=== PATIENT | female | born 1985 | race Two or more races ===

== ENCOUNTER 2020-05-12 11:31 | Inpatient (IN) | payer OTHER ==
[~2020-05-12] VITALS: Ht 165.1 cm; Wt 77.6 kg
[2020-06-04] MEDS ORDERED: PRENATAL TABLE1 EAC1 PO (16:16)
== END 2020-06-08 13:44 | DRG 788 ==
LOC: LDR 06-04 15:54 → SURG-SUITE 06-05 16:28 → LDR 06-09 13:15
PROVIDERS: ADMIT Obstetrics & Gynecology; ATTEND Obstetrics & Gynecology
PROC: 4A1HXCZ Monitoring of Products of Conception, Cardiac Rate, External Approach (ICD-10-PCS; 2020-06-04)
PROC: 3E033VJ Introduction of Other Hormone into Peripheral Vein, Percutaneous Approach (ICD-10-PCS; 2020-06-05)
PROC: 10D00Z1 Extraction of Products of Conception, Low, Open Approach (ICD-10-PCS; principal; 2020-06-05 14:00)
DX: O61.0 Failed medical induction of labor (principal); O13.3 Gestational [pregnancy-induced] hypertension without significant proteinuria, third trimester; O82 Encounter for cesarean delivery without indication; Z3A.39 39 weeks gestation of pregnancy; Z37.0 Single live birth; Z20.828 Contact with and (suspected) exposure to other viral communicable diseases

== ENCOUNTER 2020-06-02 09:30 | Outpatient (CLI) | payer OTHER | END 2020-06-02 10:41 | disposition home or self-care (01) | LOC: NST 09:30 | PROVIDERS: ATTEND Obstetrics & Gynecology Maternal & Fetal Medicine | DX: Z34.83 Encounter for supervision of other normal pregnancy, third trimester (principal) ==

== ENCOUNTER 2020-06-03 10:51 | Outpatient (CLI) | payer OTHER ==
[2020-06-04] MEDS ORDERED: PRENATAL TABLE1 EAC1 PO (16:16)
== END 2020-06-03 11:49 | disposition home or self-care (01) ==
LOC: NST 10:51
PROVIDERS: ATTEND Obstetrics & Gynecology Maternal & Fetal Medicine
DX: Z34.83 Encounter for supervision of other normal pregnancy, third trimester (principal)